=== PATIENT | male | born 1965 | race Caucasian/White ===

== ENCOUNTER → 2021-03-05 | Day surgery (SDC) | payer OTHER ==
[~2021-03-05] MED LIST: Acetaminophen 500 MG TAB ONE; Acetaminophen 500 MG TAB PO PRN; CASIRIVIMAB 1,200 MG, IMDEVIMAB 1,200 MG in Sodium Chloride 0.9% 250 ML 250 ML IV SCH; diphenhydrAMINE 50 MG/ML VIAL IVP PRN; diphenhydrAMINE 50 MG/ML VIAL ONE
== END ==
LOC: CSHSDC/OP 09:07
PROVIDERS: ATTEND Specialist
DX: Z23 Encounter for immunization (principal); U07.1 COVID-19
CPT/HCPCS: J1200; J7050